=== PATIENT | female | born 1970 | race Caucasian/White ===

== ENCOUNTER → 2021-10-13 08:34 | Outpatient (BNVA) | payer OTHER, SELFPAY | PROVIDERS: PCP Physician Assistant | DX: R10.2 Pelvic and perineal pain (principal) | CPT/HCPCS: 51798 ==

== ENCOUNTER 2024-02-10 20:47 | Emergency (ER) | payer OTHER, SELFPAY ==
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
[2024-02-10 20:52] VITALS: BP 112/47; PULSE 54; RESP 16; TEMP 36.4; O2SAT 98; BMI 21.6
[2024-02-10 22:39] VITALS: BP 102/71; PULSE 54; RESP 16; TEMP 37.2; O2SAT 96
[2024-02-11 00:13] VITALS: BP 109/74; PULSE 50; RESP 16; TEMP 36.5; O2SAT 98
[2024-02-11] MEDS: Ibuprofen 600 MG TABLET PO (00:19)
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
[2024-02-11 00:49] VITALS: BP 109/74; PULSE 50; RESP 16; TEMP 36.5; O2SAT 98
== END 2024-02-11 00:22 | disposition home or self-care (01) ==
PROVIDERS: Emergency Provider Internal Medicine; PCP Physician Assistant
DX: S20.211A Contusion of right front wall of thorax, initial encounter (principal); V17.0XXA Pedal cycle driver injured in collision with fixed or stationary object in nontraffic accident, initial encounter; Y93.55 Activity, bike riding; Y92.414 Local residential or business street as the place of occurrence of the external cause; Y99.9 Unspecified external cause status
CPT/HCPCS: 71101; 99283; 99284